=== PATIENT | male | born 1945 | race Caucasian/White ===

== ENCOUNTER → 2016-08-27 | Outpatient (CLI) | payer OTHER ==
[~2016-08-27] VITALS: Ht 177.8 cm; Wt 81.8 kg
[~2016-08-27] MED LIST: 00186-0370-20 IH; ASPIRIN E.C. 8181 MG PO; CARDIZEM LA180 MG PO; CARDIZEM120 MG PO; COUMADIN 22.5 MG/TAB PO; COUMADIN 5MG5 MG/TAB PO; MEDROL4 MG; PACERONE PO; TARCEVA150 MG PO; ZOCOR 40MG40 MG PO
[2016-08-27 10:47] VITALS: BP 164/98; PULSE 69
[2016-08-27 12:05] VITALS: BP 162/83; PULSE 75
[2016-08-27 12:06] VITALS: BP 155/82; PULSE 74
[2016-08-27 12:07] VITALS: BP 159/84; PULSE 73
== END ==
LOC: COL.CARD 10:04
DX: C34.90 Malignant neoplasm of unspecified part of unspecified bronchus or lung (principal); I25.119 Atherosclerotic heart disease of native coronary artery with unspecified angina pectoris; Z95.1 Presence of aortocoronary bypass graft; Z95.0 Presence of cardiac pacemaker
CPT/HCPCS: A9502; J2785